=== PATIENT | female | born 1950 | race Two or more races ===

== ENCOUNTER → 2018-08-19 | Outpatient (REF) | payer MEDICARE ==
[~2018-08-19] MED LIST: GLIP5TAB8 PO; ICY HOT; ICYOIN TOP; LOSA100T50 PO; SYNT125T PO; TRIL150T PO; VITATAB11 PO; VOLT1GEL15 TD; [UNRECOGNIZED DRUG - OTHER]; [UNRECOGNIZED DRUG - OTHER] TOP; [UNRECOGNIZED DRUG - OTHER] TOP; vitamin b1 PO; vitamin c PO
== END ==
LOC: M LAB LCGH 17:44
PROVIDERS: ATTEND Physician Assistant
DX: Z01.419 Encounter for gynecological examination (general) (routine) without abnormal findings (principal)

== ENCOUNTER → 2020-03-24 | Outpatient (CLI) | payer MEDICARE ==
--- NOTE | 2020-03-24 14:58 | REP ---
INDICATION: ATH FLETCHER ART OF EXT W INT ABDIRAHMAN HELENA LEGS. COMPARISON: None. TECHNIQUE: Bilateral lower extremity arterial Doppler ultrasound: FINDINGS: Ankle brachial indices are essentially normal 1.1 on the right and 0.9 on the left. Normal triphasic arterial Doppler waveforms are noted throughout both lower extremities. Mild plaquing is seen. No occlusion or high-grade stenosis is appreciated. There is 50 mm of mercury discrepancy between systolic blood pressure in the right brachial artery, greater than the left brachial artery. Right lower extremity arterial Doppler velocity chart: Right RUBBER WORKER PSV 100 cm/S Profundal 53 Proximal SFA 96 Mid SFA a 90 Distal SFA 75 Popliteal 53 Proximal ANGÉLICA 59 Tibial-peroneal trunk 40 Proximal SHOP FITTER 75 Distal SHOP FITTER 98 Distal ANGÉLICA 55 Left lower extremity arterial Doppler velocity chart: Left RUBBER WORKER PSV 100 cm/S Profundal 52 Proximal SFA 78 Mid SFA 80 Distal SFA 51 Popliteal 47 Proximal ANGÉLICA 59 Tibial-peroneal trunk 46 Proximal SHOP FITTER 70 Distal SHOP FITTER 89 Distal ANGÉLICA 61 IMPRESSION: No high-grade stenosis or occlusion. <Electronically signed by Jet Escalante > 03/24/20 [id number]
== END ==
LOC: M RAD 12:08
PROVIDERS: ATTEND Physician Assistant
DX: I70.213 Atherosclerosis of native arteries of extremities with intermittent claudication, bilateral legs (principal); R60.9 Edema, unspecified

== ENCOUNTER → 2020-03-27 | Outpatient (CLI) | payer MEDICARE ==
--- NOTE | 2020-03-27 09:31 | REP ---
INDICATION: ASTHSCL SYCUAN ART OF EXTRM W INTRMT ABDIRAHMAN BILATERAL COMPARISON: None. TECHNIQUE: Real time compression and duplex Doppler interrogation of the bilateral lower extremity deep venous system is performed. FINDINGS: Bilaterally, the common femoral, superficial femoral and popliteal veins are fully compressible with transducer pressure and demonstrate normal spontaneous and phasic flow, without evidence of deep venous thrombosis. Evaluation for venous reflux on the right demonstrates no evidence of venous reflux in the deep or superficial venous systems. Greater saphenous vein measures 5 mm at the saphenofemoral junction and 4 mm more distally. Lesser saphenous vein measures 4 mm. Evaluation for venous reflux on the left demonstrates no reflux in the deep vein system. There is reflux in the greater saphenous vein at the saphenofemoral junction with a duration of 1.4 seconds, AP diameter 11 mm, at the midthigh duration 2.2 seconds with AP diameter 8 mm, and at the level of the knee duration 2.1 seconds with AP diameter 7 mm. There is no reflux in the lesser saphenous vein which measures 3 mm. IMPRESSION: No evidence of deep venous thrombosis of the bilateral lower extremity femoral popliteal venous system. There is reflux in the left greater saphenous vein as discussed above. <Electronically signed by Sunny Jeffery > 03/27/20 [id number]
== END ==
LOC: M RAD 05:58
PROVIDERS: ATTEND Physician Assistant
DX: R60.9 Edema, unspecified (principal); I70.213 Atherosclerosis of native arteries of extremities with intermittent claudication, bilateral legs

== ENCOUNTER → 2020-08-09 | Outpatient (RCR) | payer MEDICARE | LOC: M PT 08-01 11:16 | PROVIDERS: ATTEND Family Medicine | DX: I89.0 Lymphedema, not elsewhere classified (principal) ==

== ENCOUNTER 2020-09-27 14:30 | Outpatient (RCR) | payer MEDICARE | END 2020-10-09 | LOC: M PT 14:30 | PROVIDERS: ATTEND Family Medicine | DX: I89.0 Lymphedema, not elsewhere classified (principal) ==

== ENCOUNTER 2022-01-22 08:34 | Outpatient (RCR) | payer MEDICARE ==
[~2022-01-22 08:34] MED LIST changes: +LOSA100T45 PO; -LOSA100T50 PO
== END 2022-02-08 ==
LOC: M PT 08:34
PROVIDERS: ATTEND Family Medicine
DX: I89.0 Lymphedema, not elsewhere classified (principal)

== ENCOUNTER 2022-10-01 09:24 | Outpatient (RCR) | payer OTHER ==
[~2022-10-01 09:24] MED LIST changes: -LOSA100T45 PO; +LOSA100T46 PO
== END 2022-10-09 ==
LOC: M PT 09:24
PROVIDERS: ATTEND Family Medicine
DX: I89.0 Lymphedema, not elsewhere classified (principal)

== ENCOUNTER 2023-09-01 07:22 | Day surgery (SDC) | payer OTHER ==
[~2023-09-01] VITALS: Ht 165.1 cm; Wt 89.8 kg
[~2023-09-01 07:22] MED LIST changes: +CALC-190 PO; +GLIP5TAB17 PO; -GLIP5TAB8 PO; +LEVO137T2 PO; +LOSA50TA28 PO; +LR 1,000 ML IV SCH; +MIDAZOLAM INJ 2MG/2ML VIAL As Ordered ONE; +[UNRECOGNIZED DRUG - OTHER] PO; +fentaNYL 100 MCG/2 ML INJECTION As Ordered ONE
[2023-09-01] MEDS: FLURBIPROFEN 0.03% OPHTH SOLN 2.5 ML OD SCH (07:40)
[2023-09-01] MEDS: PHENYLEPHRINE 2.5% OPHTH SOL 2ML OD SCH (07:40)
[2023-09-01] MEDS: TETRACAINE 0.5% OPHTH SOLN 4ML OD SCH (07:40)
[2023-09-01] MEDS: ATROPINE SULFATE 1% OPHTH SOLN 2ML BTL OD SCH (07:41)
[2023-09-01] MEDS: CEFUROXIME 1MG/0.1ML INTRACAMERAL INJ As Ordered ONE (09:12)
[2023-09-01] MEDS: LIDOCAINE 1% SDV 5ML VIAL As Ordered ONE (09:12)
[2023-09-01 09:30] VITALS: BP 128/64; TEMP 97.1; O2SAT 96
== END 2023-09-01 16:58 | disposition home or self-care (01) ==
LOC: M SDC 07:22
PROVIDERS: ATTEND Ophthalmology
DX: E11.36 Type 2 diabetes mellitus with diabetic cataract (principal); H25.11 Age-related nuclear cataract, right eye; I10 Essential (primary) hypertension; E78.00 Pure hypercholesterolemia, unspecified; E03.9 Hypothyroidism, unspecified; E11.40 Type 2 diabetes mellitus with diabetic neuropathy, unspecified; I89.0 Lymphedema, not elsewhere classified; Z79.899 Other long term (current) drug therapy; Z79.890 Hormone replacement therapy; Z87.891 Personal history of nicotine dependence; Z88.8 Allergy status to other drugs, medicaments and biological substances; Z90.49 Acquired absence of other specified parts of digestive tract
CPT/HCPCS: 66984; J0697; J2250; J3010; V2632

== ENCOUNTER 2023-09-22 06:31 | Day surgery (SDC) | payer OTHER ==
[~2023-09-22] VITALS: Ht 165.1 cm; Wt 91.4 kg
[~2023-09-22 06:31] MED LIST changes: +FLURBIPROFEN 0.03% OPHTH SOLN 2.5 ML OS SCH; -LR 1,000 ML IV SCH; -MIDAZOLAM INJ 2MG/2ML VIAL As Ordered ONE; -fentaNYL 100 MCG/2 ML INJECTION As Ordered ONE
[2023-09-22] MEDS: ATROPINE SULFATE 1% OPHTH SOLN 2ML BTL OS SCH (06:51)
[2023-09-22] MEDS: PHENYLEPHRINE 2.5% OPHTH SOL 2ML OS SCH (06:51)
[2023-09-22] MEDS: TETRACAINE 0.5% OPHTH SOLN 4ML OS SCH (06:51)
[2023-09-22] MEDS ORDERED: LR 1,000 ML IV SCH (07:00)
[2023-09-22] MEDS ORDERED: fentaNYL 100 MCG/2 ML INJECTION As Ordered ONE (07:12)
[2023-09-22] MEDS ORDERED: MIDAZOLAM INJ 2MG/2ML VIAL As Ordered ONE (07:12)
[2023-09-22] MEDS: FLURBIPROFEN 0.03% OPHTH SOLN 2.5 ML OS SCH (07:36)
[2023-09-22] MEDS ORDERED: ONDANSETRON 4MG 2ML VIAL As Ordered ONE (08:14)
[2023-09-22] MEDS: LIDOCAINE 1% SDV 5ML VIAL As Ordered ONE (08:15)
[2023-09-22] MEDS: CEFUROXIME 1MG/0.1ML INTRACAMERAL INJ As Ordered ONE (08:15)
[2023-09-22 08:34] VITALS: BP 142/76; TEMP 98.2; O2SAT 98
== END 2023-09-22 08:44 | disposition home or self-care (01) ==
LOC: M SDC 06:31
PROVIDERS: ATTEND Ophthalmology
DX: H25.12 Age-related nuclear cataract, left eye (principal); I10 Essential (primary) hypertension; E78.5 Hyperlipidemia, unspecified; E03.9 Hypothyroidism, unspecified; K57.92 Diverticulitis of intestine, part unspecified, without perforation or abscess without bleeding; F41.9 Anxiety disorder, unspecified; F43.10 Post-traumatic stress disorder, unspecified; Z79.899 Other long term (current) drug therapy; Z79.84 Long term (current) use of oral hypoglycemic drugs; Z88.8 Allergy status to other drugs, medicaments and biological substances
CPT/HCPCS: 66984; J0697; J2250; J2405; J3010; V2632